=== PATIENT | male | born 1960 ===

== ENCOUNTER 2023-05-12 05:50 | Day surgery (SDC) | payer OTHER ==
[~2023-05-12] VITALS: Ht 172.7 cm; Wt 74.8 kg
[~2023-05-12 05:50] MED LIST: ADULT LOW DOSE81 M1 PO; ATORVASTATIN CA40 MG PO; LOSARTAN-HCTZ1 EAC2 PO; TAMS0.4C PO; TOPROL XL100 M1 PO
== END 2023-05-12 15:50 | disposition home or self-care (01) ==
LOC: CIR.AMB 05:50
PROVIDERS: ATTEND Otolaryngology Otology & Neurotology
DX: H71.21 Cholesteatoma of mastoid, right ear (principal); D68.9 Coagulation defect, unspecified; I10 Essential (primary) hypertension; Z20.822 Contact with and (suspected) exposure to COVID-19